=== PATIENT | male | born 1990 | race Caucasian/White ===

== ENCOUNTER 2020-03-31 15:22 | Emergency (ER) | payer BC ==
[2020-03-31] MEDS ORDERED: Sodium Chloride 0.9% 1,000 ML ONE ×2 (15:52→17:10)
[2020-03-31 16:07] LABS: #Basophils 0.1 thou/uL (0.0-0.2); #Eosinphils 0.1 thou/uL (0.0-0.7); #Lymphocytes 1.3 thou/uL (1.20-3.40); #Monocytes 0.4 thou/uL (0.11-0.59); #Neutrophils 5.6 thou/uL (1.40-6.50); %Basophils 0.9 % (0.0-1.0); %Eosinophils 1.1 % (0.0-10.0); %Monocytes 5.6 % (0.0-10.0); %Neutrophils 75.5 % (42.0-75.0); Hemoglobin 17.7 g/dL (14.0-18.0); Mean Corpuscular HGB CONC 33.1 g/dL (32.0-36.0); Mean Corpuscular Hemoglobin 35.9 pg (27.0-31.0); Mean Platelet Volume 8.2 fL (7.4-10.4); Platelet Count 185 thou/uL (130-400); RBC Distribution Width 11.9 % (11.5-14.5); Red Blood Cell (RBC) Count 4.91 mill/uL (4.70-6.10); White Blood Cell (WBC) Count 7.5 thou/uL (4.8-10.8)
[2020-03-31 16:11] LABS: ALT (SGPT) 35 U/L (8-55); AST (SGOT) 55 U/L (5-34); Albumin 4.6 g/dL (3.5-5.0); Alcohol 16 mg/dL (Less than 10); Alkaline Phosphatase 62 U/L (40-110); Anion Gap 19 mmol/L (10-20); BUN (Urea Nitrogen) 5 mg/dL (8.9-20.6); Bilirubin, Total 0.6 mg/dL (0.2-1.2); Calc. Creatinine Clearance 0 mL/min (70-130); Calcium 9.5 mg/dL (7.8-10.44); Carbon Dioxide 24 mmol/L (22-29); Chloride 98 mmol/L (98-107); Glucose 110 mg/dL (70-105); Potassium 3.4 mmol/L (3.5-5.1); Protein, Total 7.6 g/dL (6.0-8.3); Sodium 138 mmol/L (136-145)
--- NOTE | 2020-03-31 16:28 | CT ---
CT HEAD WITHOUT IV CONTRAST COMPARISON: None HISTORY: Seizure after a fall. Syncope. TECHNIQUE: Axial CT imaging at 5 mm intervals from vertex through skull base without contrast FINDINGS: There is no evidence of an acute infarction, hemorrhage, mass effect, or midline shift. The ventricul ar system is normal in size, shape, and position. Skull base has a normal CT appearance. Mild mucosal thickening seen in an anterior right ethmoidal air cell. Visualized paranasal sinuses ar e clear. Osseous structures appear intact.No depressed calvarial fracture is seen. IMPRESSION: 1. No acute intracranial abnormality demonstrated.
[2020-03-31] MEDS ORDERED: Lorazepam 2 MG/ML VIAL ONE (16:42)
--- NOTE | 2020-03-31 16:47 | CT ---
EXAM: CT Thoracic Spine WO Con PROVIDED CLINICAL HISTORY: Mid thoracic spine pain after a fall. COMPARISON: None FINDINGS: There are superior endplate compression fractures involving the T5, T6, and T7 vertebral bodies with at least 10% loss of height of these vertebral bodies. These fractures appear to represent more acute fractures. The remaining vertebral body heights are within normal limits. No additional fracture is seen. No tra umatic subluxation is seen involving the thoracic spine. No high-grade central canal or neural foraminal narrowing is seen throughout the thoracic spine. Paravertebral soft tissues are within normal limits. Visualized medial aspects of each lung field are clear. IMPRESSION: Acute compression fractures involving the superior endplates of the T5, T6, and T7 vertebral bodies.
[2020-03-31 16:55] LABS: Bilirubin Negative (Negative); Blood, Urine Negative (Negative); Clarity Clear (Clear); Glucose, Urine (Dipstick) Negative (Negative); Ketone, Urine Negative (Negative); Leukocyte Negative (Negative); Nitrite Negative (Negative); Protein, Urine (Dipstick) Negative (Neg-Trace); Urobilinogen 0.2 mg/dL (Less than 2); pH, Urine 8.5 (5.0-9.0)
[2020-03-31 17:08] LABS: Amphetamine Detected (NotDetected); Barbiturates Screen Not Detected (NotDetected); Benzodiazepine Screen Detected (NotDetected); Cocaine Metabolite Screen Not Detected (NotDetected); Medtox Control Line Valid? VALID (VALID); Methadone Not Detected (NotDetected); Methamphetamine Detected (NotDetected); Opiate Screen Not Detected (NotDetected); Oxycodone Screen Not Detected (NotDetected); Phencyclidine (PCP) Not Detected (NotDetected); THC/Cannabinoid Screen Not Detected (NotDetected); Tricyclic Screen Not Detected (NotDetected)
== END 2020-03-31 18:44 | disposition short-term general hospital (02) ==
LOC: NAV ERS 15:22
DX: S22.059A Unspecified fracture of T5-T6 vertebra, initial encounter for closed fracture (principal); S22.069A Unspecified fracture of T7-T8 vertebra, initial encounter for closed fracture; R56.9 Unspecified convulsions; F15.10 Other stimulant abuse, uncomplicated; F17.210 Nicotine dependence, cigarettes, uncomplicated; W22.8XXA Striking against or struck by other objects, initial encounter
CPT/HCPCS: 36416; 70450; 72128; 80053; 80306; 80307; 81003; 83605; 83735; 84443; 85025; 93005; 96374; J2060; J7050

== ENCOUNTER 2020-04-12 15:21 | Outpatient (CLI) | payer BC ==
--- NOTE | 2020-04-12 15:46 | RAD ---
EXAM: XR Thoracic Spine 2 View PROVIDED CLINICAL HISTORY: Multiple fractures thoracic spine. COMPARISON: CT thoracic spine on 03/31/2020 FINDINGS: As noted on CT scan thoracic spine, there are superior endplate compression fractures involving the T 5, T6, and T7 vertebral bodies. Degree of height loss is unchanged compared to prior study. Remaining vertebral body heights appear to be within normal limits, and there is no evidence of a sub luxation. IMPRESSION: Stable degree of height loss involving the superior endplate compression fractures of the T5, T6, and T7 vertebral bodies.
== END 2020-04-12 15:22 | disposition home or self-care (01) ==
LOC: NAV RAD 15:21
PROVIDERS: ATTEND Neurological Surgery
DX: S22.058A Other fracture of T5-T6 vertebra, initial encounter for closed fracture (principal); S22.068A Other fracture of T7-T8 thoracic vertebra, initial encounter for closed fracture; R29.890 Loss of height
CPT/HCPCS: 72070

== ENCOUNTER 2020-04-17 15:08 | Emergency (ER) | payer BC ==
[2020-04-17] MEDS ORDERED: Sodium Chloride 0.9% 1,000 ML ONE (15:21)
[2020-04-17 15:43] LABS: #Basophils 0.1 thou/uL (0.0-0.2); #Lymphocytes 1.3 thou/uL (1.20-3.40); #Monocytes 0.5 thou/uL (0.11-0.59); #Neutrophils 5.4 thou/uL (1.40-6.50); %Basophils 0.8 % (0.0-1.0); %Eosinophils 0.6 % (0.0-10.0); %Neutrophils 73.7 % (42.0-75.0); Hemoglobin 16.7 g/dL (14.0-18.0); Mean Corpuscular HGB CONC 35.2 g/dL (32.0-36.0); Mean Corpuscular Hemoglobin 36.6 pg (27.0-31.0); Mean Platelet Volume 7.2 fL (7.4-10.4); Platelet Count 247 thou/uL (130-400); RBC Distribution Width 10.9 % (11.5-14.5); Red Blood Cell (RBC) Count 4.57 mill/uL (4.70-6.10); White Blood Cell (WBC) Count 7.3 thou/uL (4.8-10.8)
--- NOTE | 2020-04-17 15:49 | CT ---
CT head noncontrast HISTORY: Seizure. COMPARISON: 03/31/2020. FINDINGS: There is no evidence of acute intracranial hemorrhage or infarct. The ventricles appear nor mal in size, shape and position. There is no mass effect or shift of midline structures. Visualized paranasal sinuses remain well aerated. IMPRESSION : No abnormalities are demonstrated.
[2020-04-17 15:50] LABS: ALT (SGPT) 16 U/L (8-55); AST (SGOT) 29 U/L (5-34); Alkaline Phosphatase 85 U/L (40-110); Anion Gap 18 mmol/L (10-20); BUN (Urea Nitrogen) 10 mg/dL (8.9-20.6); Bilirubin, Total 0.8 mg/dL (0.2-1.2); Calc. Creatinine Clearance 0 mL/min (70-130); Calcium 9.5 mg/dL (7.8-10.44); Carbon Dioxide 23 mmol/L (22-29); Chloride 97 mmol/L (98-107); Globulin 2.9 g/dL (2.4-3.5); Glucose 145 mg/dL (70-105); Protein, Total 6.9 g/dL (6.0-8.3); Sodium 134 mmol/L (136-145)
[2020-04-17] MEDS ORDERED: Gabapentin 100 MG CAP PO SCH (16:30)
== END 2020-04-17 16:35 | disposition home or self-care (01) ==
LOC: NAV ERS 15:08
DX: R56.9 Unspecified convulsions (principal); F17.210 Nicotine dependence, cigarettes, uncomplicated
CPT/HCPCS: 70450; 80053; 85025; J7050

== ENCOUNTER 2020-05-21 16:41 | Outpatient (CLI) | payer BC ==
--- NOTE | 2020-05-21 16:58 | RAD ---
EXAM: 3 views of the thoracic spine HISTORY: Fracture of the thoracic spine COMPARISON: CT thoracic spine 03/31/2020 FINDINGS: 3 views of the thoracic spine shows stable slight compression height loss of T5, T6, and T7 . The vertebral bodies demonstrate normal alignment without subluxation. No significant degenerative changes are seen. IMPRESSION: Stable wedge compression fractures of the midthoracic spine
== END 2020-05-21 16:42 | disposition home or self-care (01) ==
LOC: NAV RAD 16:41
PROVIDERS: ATTEND Neurological Surgery
DX: S22.000A Wedge compression fracture of unspecified thoracic vertebra, initial encounter for closed fracture (principal)
CPT/HCPCS: 72072

== ENCOUNTER 2021-01-14 17:21 | Outpatient (CLI) | payer BC | END 2021-01-14 17:22 | disposition home or self-care (01) | LOC: NAV RAD 17:21 | PROVIDERS: ATTEND Family Medicine | DX: J18.9 Pneumonia, unspecified organism (principal); J90 Pleural effusion, not elsewhere classified | CPT/HCPCS: 71046 ==

== ENCOUNTER 2021-02-16 12:28 | Emergency (ER) | payer BC ==
[2021-02-16] MEDS ORDERED: Morphine 4 MG/ML VIAL ONE ×2 (13:16→15:36)
[2021-02-16] MEDS ORDERED: Sodium Chloride 0.9% 1,000 ML ONE (13:16)
[2021-02-16] MEDS ORDERED: Ondansetron PF 4 MG/2 ML Vial ONE ×2 (13:16→15:36)
[2021-02-16] MEDS ORDERED: Pantoprazole 40 MG VIAL ONE (13:16)
[2021-02-16 13:44] LABS: ALT (SGPT) 16 U/L (8-55); AST (SGOT) 24 U/L (5-34); Albumin 4.5 g/dL (3.5-5.0); Alkaline Phosphatase 94 U/L (40-110); Anion Gap 18 mmol/L (10-20); BUN (Urea Nitrogen) 7 mg/dL (8.9-20.6); Bilirubin, Total 1.2 mg/dL (0.2-1.2); Calc. Creatinine Clearance 0 mL/min (70-130); Calcium 10.4 mg/dL (7.8-10.44); Carbon Dioxide 28 mmol/L (22-29); Chloride 96 mmol/L (98-107); Glucose 95 mg/dL (70-105); Lipase 2068 U/L (8-78); Potassium 4.2 mmol/L (3.5-5.1); Protein, Total 8.5 g/dL (6.0-8.3); Sodium 138 mmol/L (136-145)
[2021-02-16 13:57] LABS: #Lymphocytes 0.7 thou/uL (1.20-3.40); #Monocytes 0.5 thou/uL (0.11-0.59); #Neutrophils 6.2 thou/uL (1.40-6.50); %Basophils 0.5 % (0.0-1.0); %Eosinophils 0.4 % (0.0-10.0); %Lymphocytes 9.3 % (21.0-51.0); %Monocytes 6.4 % (0.0-10.0); %Neutrophils 83.4 % (42.0-75.0); Hemoglobin 17.6 g/dL (14.0-18.0); Mean Corpuscular HGB CONC 31.5 g/dL (32.0-36.0); Mean Corpuscular Hemoglobin 34.4 pg (27.0-31.0); Mean Platelet Volume 8.7 fL (7.4-10.4); Platelet Count 199 thou/uL (130-400); RBC Distribution Width 13.6 % (11.5-14.5); Red Blood Cell (RBC) Count 5.13 mill/uL (4.70-6.10); White Blood Cell (WBC) Count 7.5 thou/uL (4.8-10.8)
[2021-02-16 13:58] LABS: Macrocytosis MARKED = >30 cells (100X) (0-5/hpf)
[2021-02-16 15:41] LABS: SARS-CoV-2 NAA Rapid Test Not Detected (NotDetected)
== END 2021-02-16 16:45 | disposition short-term general hospital (02) ==
LOC: NAV ERS 12:28
DX: K85.90 Acute pancreatitis without necrosis or infection, unspecified (principal); K86.1 Other chronic pancreatitis; K29.70 Gastritis, unspecified, without bleeding; F17.210 Nicotine dependence, cigarettes, uncomplicated; Q44.4 Choledochal cyst; Z20.822 Contact with and (suspected) exposure to COVID-19
CPT/HCPCS: 80053; 83690; 85025; 96374; 96375; 96376; C9113; J2270; J2405; J7050; U0002